=== PATIENT | male | born 1955 | race Caucasian/White ===

== ENCOUNTER 2016-09-13 11:25 | Emergency (ER) | payer OTHER ==
[2016-09-13 11:40] VITALS: BP 142/80; PULSE 69; RESP 18; TEMP 98.2; O2SAT 98
[2016-09-13] MEDS ORDERED: NS 1,000 ML IV ONE (11:40)
[2016-09-13] MEDS ORDERED: HYDROmorphONE/DILAUDID 1 MG/ML SYR IVP ONE ×4 (11:40→14:14)
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
[2016-09-13] MEDS ORDERED: IOPAMIDOL (ISOVUE-300) 100 ML BTL IV ONE (11:58)
[2016-09-13 12:00] LABS: % IMMATURE GRANULYOCYTES 0.4 % (0.0-1.1); ABSOLUTE IMMATURE GRANULOCYTES 0.03 10^3/uL (0.00-0.10); ADD DIFF? NO; ADD MORPH? NO; ADD SCAN? NO; ATYPICAL LYMPHOCYTE FLAG 10 (0-99); FRAGMENT RBC FLAG 0 (0-99); HEMATOCRIT 45.8 % (40.0-51.0); LEFT SHIFT FLG 0 (0-99); LIPEMIA HEMOLYSIS FLAG 90 (0-99); MEAN CELL HEMOGLOBIN 32.1 pg (27.9-34.1); MEAN CELL HEMOGLOBIN CONCENTR. 34.9 g/dL (32.4-36.7); MEAN CELL VOLUME 91.8 fL (81.5-99.8); MEAN PLATELET VOLUME 9.9 fL (8.7-11.7); PLATELET CLUMPS FLAG 20 (0-99); PLATELET COUNT 220 10^3/uL (150-400); RED BLOOD CELL COUNT 4.99 10^6/uL (4.40-6.38); RED CELL DISTRIBUTION WIDTH 13.2 % (11.5-15.2)
[2016-09-13 12:09] LABS: INR 1.15 (0.83-1.16); PROTIME(PATIENT) 14.7 SEC (12.0-15.0)
[2016-09-13 12:10] LABS: APTT 24.7 SEC (23.0-38.0)
[2016-09-13 12:20] LABS: ANION GAP 11 mEq/L (8-16); CALCIUM 8.7 mg/dL (8.5-10.4); CARBON DIOXIDE 21 mEq/l (22-31); CHLORIDE 108 mEq/L (97-110); CREATININE 0.9 mg/dL (0.7-1.3); ETHANOL SERUM < 10 mg/dL (0-10); GLOMERULAR FILTRATION RATE > 60; GLUCOSE 99 mg/dL (70-100); POTASSIUM 3.8 mEq/L (3.5-5.2); SODIUM 140 mEq/L (134-144)
[2016-09-13] MEDS ORDERED: ONDANSETRON 4 MG/2 ML VIAL IVP ONE (14:14)
[2016-09-13] MEDS ORDERED: DIAZEPAM 10 MG/2 ML SYR IVP ONE (14:42)
== END 2016-09-13 15:11 | disposition short-term general hospital (02) ==
LOC: EDUNIT#
PROC: 3E0T3BZ Introduction of Anesthetic Agent into Peripheral Nerves and Plexi, Percutaneous Approach (ICD-10-PCS; principal; 2016-09-13)
DX: S72.422A Displaced fracture of lateral condyle of left femur, initial encounter for closed fracture (principal); V89.2XXA Person injured in unspecified motor-vehicle accident, traffic, initial encounter; Y92.410 Unspecified street and highway as the place of occurrence of the external cause
CPT/HCPCS: 82947-QW; 96365; G0480; J0690; J1170; J2405; Q9967

== ENCOUNTER 2017-11-14 18:27 | Emergency (ER) | payer OTHER ==
--- NOTE | 2017-11-14 19:03 | EDPHY ---
HPI/HX/ROS/PE/MDM Narrative: CHIEF COMPLAINT: Right-sided face and jaw pain HISTORY OF PRESENT ILLNESS: The patient is a 62 y/o male complaining of right-sided face and jaw pain radiating down the right side of his neck associated with a headache onset last night. Today he has noticed mild swelling of the right-side of his face. There was some discharge from his right eye this morning. He has had a sinus infection in the past, but he did not have jaw pain associated with the sinus infection. Denies head trauma, history of glaucoma, dental pain or trauma. No numbness or tingling in extremities. Last week he did have cold like-symptoms. On Tuesday, 5 days ago, he had acupuncture which he has regularly. No fever, chills, chest pain, shortness of breath, palpitations, vomiting, diarrhea, urinary complaints, lightheadedness. REVIEW OF SYSTEMS: Aside from elements discussed in the HPI, a comprehensive 10-point review of systems was reviewed and is negative. PAST MEDICAL HISTORY: Gout SOCIAL HISTORY: , lives in [place], retired VITAL SIGNS: Reviewed by me GENERAL: Well-developed, well-nourished, resting comfortably in no respiratory distress. HEENT: Atraumatic. Tenderness to percussion of right frontal and maxillary sinus. Swelling on right cheek, right cheek tenderness radiating to right jaw, ear, and neck Eyes:Visual Acuity: noted from Nurse's notes. Focused examination of the right eye. Eyelid: Mild erythema and swelling. Pupils: Right eye miosis Round and reactive to light. Conjunctivae: Right eye injection, no discharge. Cornea: Exam with fluorescein shows no uptake Anterior chamber: Normal, no hyphema or hypopyon Skin: No proptosis, no periorbital erythema or swelling, no vesicles. No pain with eye movement. Ears: Clear TM's. Mouth: moist mucous membranes. No erythema or lesions. Neck: supple with no adenopathy. LUNGS: Clear to auscultation bilaterally, no wheezes, rhonchi or rales. CARDIAC: Regular rate and rhythm, no rubs, murmurs or gallops. ABDOMEN: Soft, nontender, nondistended, bowel sounds normal. BACK: No CVA tenderness. EXTREMITIES: No trauma. No edema. Range of motion is normal throughout. NEURO: Intact cranial nerves. Alert and oriented, grossly nonfocal. SKIN: Warm and dry, no rash. PSYCHIATRIC: Normal mentation, no agitation. Portions of this note were transcribed by a director biomedical engineering. I personally performed a history, physical exam, medical decision making, and confirmed accuracy of information the transcribed note. ED Course: The patient is a 62 y/o male presenting with right-sided face and jaw pain radiating down the right side of his neck associated with a headache onset last night. On exam he has tenderness to percussion of the right frontal and maxillary sinus, there is also swelling and tenderness of the right cheek radiating to the right jaw, ear, and neck. His cranial nerves are intact and there is no cervical adenopathy. He also has right eye miosis with conjunctival injection. The patient does not have pain with eye movement. Labs and maxillofacial CT ordered. 1920: Reassessed patient and measured eye pressures. Right Eye: 13mmgHg; Left Eye: 12mmHg 2044: Spoke with radiologist regarding patient's CT findings, there are no acute findings. 2049: Reassessed patient and discussed imaging findings. Question whether this could be early zoster. I have preformed a fluorescein eye exam, which reveals no fluorescein uptake. 30mg IV Toradol given. 2233: Reassessed patient and discussed follow up with his rags laborer without fail tomorrow. I have prescribed him Ocuflox and Valtrex. His first dose of Valtrex was given prior to discharge. Patient understands that a diagnosis of zoster is a possiblity. Will start valtrex and observe carefully. Multiple attempts made to reach opthomology manager of information without success. Patient instructed to contact optho in morning for recheck and appointment. Return precautions provided; patient is comfortable with this plan. MDM: Diff dx considered included glaucoma, sinusitis, zoster, cellulitis, conjunctivitis, deep space infection, orbital cellulitis, periorbital cellulitis - Data Points Imaging Results: Impression: Negative. No evidence of orbital cellulitis, mass, or vascular malformation. Findings discussed with Emergency Department physician, Mamie Strickland M.D., on November 14, 2017 at 2046. Dictated By: Preston Multani MD Imaging: Discussed imaging studies w/ call center recruiter Radiologist, I viewed and interpreted images myself Laboratory Results: Laboratory Results 11/14/17 19:45 06/18/18 19:45 Medications Given: Discontinued Medications Ketorolac Tromethamine (Toradol) 30 mg IVP EDNOW ONE Stop: 11/14/17 21:04 Last Admin: 11/14/17 21:09 Dose: 30 mg Ofloxacin (Ocuflox 0.3% Opht Drops Prepack) 1 btl TAKEHOME EDNOW ONE Stop: 11/14/17 22:29 Last Admin: 11/14/17 22:33 Dose: 1 btl Valacyclovir HCl (Valtrex) 1,000 mg PO EDNOW ONE Stop: 11/14/17 22:34 Last Admin: 11/14/17 22:39 Dose: 1,000 mg Point of Care Test Results: Chemistry 11/14/17 20:00 POC Sodium 143 mEq/L mEq/L (135-145) POC Potassium 4.2 mEq/L mEq/L (3.3-5.0) POC Chloride 106 mEq/L mEq/L (97-110) POC BUN 12 mg/dL mg/dL (7-23) POC Creatinine 1.0 mg/dL mg/dL (0.7-1.3) POC Glucose 83 mg/dL mg/dL (70-100) ISTAT H&H 11/14/17 20:00 POC Hgb 17.0 gm/dL gm/dL (13.7-17.5) POC Hct 50 % % (40-51) General Time Seen by Provider: 11/14/17 19:02 Initial Vital Signs: Initial Vital Signs Temperature (C) 36.5 C 11/14/17 18:28 Heart Rate 56 L 11/14/17 18:28 Respiratory Rate 16 11/14/17 18:28 Blood Pressure 128/107 H 11/14/17 18:28 O2 Sat (%) 96 11/14/17 18:28 O2 Delivery Mode Room Air Allergies/Adverse Reactions: No Known Allergies Allergy (Unverified 01/15/16 12:20) Home Medications: Medication Instructions Recorded FLUoxetine 01/15/16 Ofloxacin 0.3% [Ocuflox 0.3%] 1 - 2 drops OP QID #1 opht.btl 11/14/17 Valacyclovir HCl [Valtrex] 1,000 mg PO TID #21 tab 11/14/17 valACYclovir [Valtrex (*)] 500 mg PO TID #30 tab 11/14/17 Departure - Departure Disposition: Home, Routine, Self-Care Clinical Impression: Acute right eye pain, Conjunctivitis Condition: Good Instructions: Shingles (ED), Eye Pain (ED) Additional Instructions: Follow up with your rags laborer tomorrow without fail. Use ofloxacin eye drops as prescribed. Take Valtrex as prescribed. Look out for a rash under your eye. Take 600mg ibuprofen every 6-8 hours with food as needed for pain. Return to the Emergency Department for severe headache, vomiting, vision changes , confusion, fever or other concerns. Referrals: Frances Woods MD [Primary Care Provider] - As per Instructions Bryan Ma MD [Medical Doctor] - As per Instructions Prescriptions: Ofloxacin 0.3% [Ocuflox 0.3%] 1 - 2 drops OP QID #1 opht.btl valACYclovir [Valtrex (*)] 500 mg PO TID #30 tab Valacyclovir HCl [Valtrex] 1,000 mg PO TID #21 tab Report Scribed for: Mamie Strickland Report Scribed by: Lizbeth Peguero Date of Report: 11/14/17 Time of Report: 21:33
[2017-11-14] MEDS ORDERED: IOPAMIDOL (ISOVUE-300) 100 ML BTL ONE (19:27)
[2017-11-14 20:06] LABS: PLATELET COUNT 237 10^3/uL (150-400)
[2017-11-14] MEDS ORDERED: KETOROLAC 30 MG/1 ML SDV IVP ONE (21:03)
[2017-11-14] MEDS ORDERED: OFLOXACIN 0.3% SOLN PREPACK OPHT.BTL TAKEHOME ONE ×2 (22:24→22:28)
[2017-11-14 22:26] VITALS: BP 138/93
[2017-11-14] MEDS ORDERED: valACYclovir 500 MG TAB PO ONE ×2 (22:32→22:33)
== END 2017-11-14 22:24 | disposition home or self-care (01) ==
DX: H10.9 Unspecified conjunctivitis (principal)
CPT/HCPCS: 82435-PO; 82565-PO; 82947-PO; 84132-PO; 84295-PO; 84520-PO; 85014-PO; 96374; J1885; Q9967